=== PATIENT | female | born 2000 | race Hispanic/Latino ===

== ENCOUNTER 2020-11-15 00:57 | Emergency (ER) | payer OTHER ==
--- OUTSIDE RECORDS SUMMARY | 2020-11-15 00:59 | XMS REPORT | Continuity of Care Document ---
:2000 Author Organization [facility] t Address [address] [place] [address] Care Team Providers Name Role Phone Lauryn Franklin Attending Clinician Doctor Unassigned, Name Attending Clinician Unavailable Problems This patient has no known problems. Allergies, Adverse Reactions, Alerts This patient has no known allergies or adverse reactions. Medications This patient has no known medications. Procedures This patient has no known procedures. Encounters Start End Encounter Admission Attending Care Care Encounter Source Date/Time Date/Time Type Type Clinicians Facility Department ID 2019-06-12 2019-06-12 Refill [place] [facility] [id number] 00:00:00 00:00:00 Ananda R RISK AND INSURANCE MANAGER [id number] REGIONAL [id number] MATERNAL [id number] & CHILD 107 [facility] 2019-06-12 2019-06-12 Patient Doctor [facility] [id number] 00:00:00 00:00:00 Secure Msg Unassigned, RISK AND INSURANCE MANAGER [id number] Ashley [facility] [id number] MATERNAL [id number] & CHILD 107 [facility] Results This patient has no known results.
[2020-11-15 02:00] LABS: Absolute Lymphocytes (CBC) 1.9 K/uL (0.7-4.9); Basophils % 0.6 % (0-1.3); Hematocrit 38.1 % (36.0-45.0); Lymphocytes % 23.3 % (15.3-44.8); MPV 9.9 fL (7.6-11.3); RBC Red Blood Cell Count 4.09 M/uL (3.86-4.86)
[2020-11-15 02:24] LABS: BUN Blood Urea Nitrogen 7 mg/dL (7-18); Bicarbonate 27 mmol/L (21-32); Glucose Level 90 mg/dL (74-106); HCG, Quantitative 1012 mIU/mL (1-3); Potassium 3.6 mmol/L (3.5-5.1); Sodium Level 140 mmol/L (136-145)
[2020-11-15 02:27] LABS: Urine Blood 2+ (NEG); Urine Glucose NEGATIVE (NEG); Urine Protein NEGATIVE (NEG); Urine Specific Gravity >1.030 (1.005-1.030); Urine pH 6.5 (5.0-7.0)
[2020-11-15] MEDS ORDERED: ONDANSETRON 4 MG/2 ML VIAL ONE (05:14)
[2020-11-15] MEDS ORDERED: MORPHINE 2 MG/ML SYR ONE (05:14)
--- NOTE | 2020-11-15 06:47 | ER ---
Nurse's Notes [facility] Name: Latonya Cihrinos Age: 20 yrs Sex: Female : 2000 Arrival Date: 11/15/2020 Time: 00:58 Bed 13 Private MD: Corbin Erwin B Diagnosis: Threatened Presentation: 11/15 01:15 Chief complaint: Patient states: Reports vaginal bleeding that began 1 hour ago, lp1 reports having pelvic cramping and noticed bright red blood with clots; reports about 12 weeks . Coronavirus screen: Client denies travel out of the [place] in the last 14 days. At this time, the client does not indicate any symptoms associated with coronavirus-19. Ebola Screen: No symptoms or risks identified at this time. Risk Assessment: Do you want to hurt yourself or someone else? Patient reports no desire to harm self or others. Onset of symptoms was November 15, 2020 at 00:00. 01:15 Method Of Arrival: Ambulatory lp1 01:15 Acuity: DANIEL 3 lp1 01:18 Initial Sepsis Screen: Does the patient meet any 2 criteria? No. Patient's initial lp1 sepsis screen is negative. Does the patient have a suspected source of infection?. 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 - Social history:: Smoking status: Patient denies any tobacco usage or history of. Screenin:20 Abuse screen: Denies threats or abuse. Denies injuries from another. Nutritional lp1 screening: No deficits noted. Tuberculosis screening: No symptoms or risk factors identified. Fall Risk None identified. Assessment: 01:20 General: Appears in no apparent distress. uncomfortable, Behavior is calm, cooperative, jb4 appropriate for age. Pain: Complains of pain in abdomen Pain does not radiate. Pain currently is 7 out of 10 on a pain scale. Quality of pain is described as crampy. Neuro: Level of Consciousness is awake, alert, obeys commands, Oriented to person, place, time, situation. Cardiovascular: Patient's skin is warm and dry. Respiratory: Airway is patent Respiratory effort is even, unlabored, Respiratory pattern is regular, symmetrical. GI: Reports cramping. : Vaginal discharge is eloise blood. EENT: No signs and/or symptoms were reported regarding the EENT system. Derm: Skin is intact, Skin is pink, warm \T\ dry. Musculoskeletal: Circulation, motion, and sensation intact. Range of motion: intact in all extremities. 02:24 Reassessment: patient presented with heavy vaginal bleeding. sent to ultrasound via mg2 stretcher accompanied by ALLEGAR Garcia Tech. 03:30 Reassessment: Patient appears in no apparent distress at this time. Patient and/or jb4 family updated on plan of care and expected duration. Pain level reassessed. Patient is alert, oriented x 3, equal unlabored respirations, skin warm/dry/pink. 04:30 Reassessment: Patient appears in no apparent distress at this time. Patient and/or jb4 family updated on plan of care and expected duration. Pain level reassessed. Patient is alert, oriented x 3, equal unlabored respirations, skin warm/dry/pink. 05:30 Reassessment: Patient appears in no apparent distress at this time. Patient and/or jb4 family updated on plan of care and expected duration. Pain level reassessed. Patient is alert, oriented x 3, equal unlabored respirations, skin warm/dry/pink. PT given warm blanket and pillow per request. 07:00 Reassessment: Patient appears in no apparent distress at this time. Patient and/or jb4 family updated on plan of care and expected duration. Pain level reassessed. Patient is alert, oriented x 3, equal unlabored respirations, skin warm/dry/pink. Vital Signs: 01:18 BP 123 / 75; Pulse 72; Resp 16; Temp 98.2(TE); Pulse Ox 100% on R/A; Weight 68.04 kg lp1 (R); Height 5 ft. 6 in. (167.64 cm); Pain 6/10; 02:42 BP 120 / 71 LA Supine (man/reg); Pulse 74 LA; Resp 16; Temp 98.1(O); Pulse Ox 100% on jb5 R/A; 04:30 BP 116 / 70; Pulse 86; Resp 16; Pulse Ox 99% on R/A; jb4 05:00 BP 127 / 70; Pulse 89; Resp 16; Pulse Ox 100% on R/A; jb4 06:15 BP 106 / 58; Pulse 62; Resp 18; Pulse Ox 99% on R/A; jb4 07:00 BP 111 / 61; Pulse 73; Resp 16; Pulse Ox 100% on R/A; jb4 01:18 Body Mass Index 24.21 (68.04 kg, 167.64 cm) lp1 ED Course: 00:58 Patient arrived in ED. am2 00:58 Corbin Erwin MD is Private Physician. am2 01:17 Triage completed. lp1 01:17 Arm band placed on. lp1 01:27 Jourdan Arciniega RN is Primary Nurse. jb4 01:31 Sam Viera MD is Attending Physician. 7 02:00 Inserted saline lock: 20 gauge in right antecubital area, using aseptic technique. jb5 Blood collected. 02:15 Urine collected: straight cath specimen. mg2 02:23 Patient has correct armband on for positive identification. Pulse ox on. NIBP on. Door mg2 closed. Warm blanket given. 02:23 Assist provider with pelvic exam: Set up pelvic tray. Performed by Sam Viera MD mg2 Patient tolerated well. 02:36 Transvaginal OB US In Process Unspecified. EDMS 02:39 Warm blanket given. Verbal reassurance given. Linen changed. Patient cleaned with bath jb5 wipes from pelvic exam and cleaned of excess blood, patient assisted into diaper for vaginal bleeding. 06:46 Corbin Erwin MD is Referral Physician. 7 07:00 IV discontinued, intact, bleeding controlled, No redness/swelling at site. Pressure jb4 dressing applied. Administered Medications: 05:00 Drug: Zofran (Ondansetron) 4 mg Route: IVP; Site: right antecubital; jb4 05:03 Drug: morphine 2 mg Route: IVP; Site: right antecubital; jb4 Outcome: 06:47 Discharge ordered by . 7 07:00 Discharged to home via wheelchair, with friend. jb4 07:00 Condition: stable 07:00 Discharge instructions given to patient, Instructed on discharge instructions, follow up and referral plans. medication usage, Demonstrated understanding of instructions, follow-up care, medications, Prescriptions given X 1. 07:19 Patient left the ED. jb4 Signatures: Dispatcher [employer] EDMS Hien Gómez RN RN lp1 Jourdan Arciniega RN RN jb4 Sandra Pope jb5 Emy Vieyra am2 David Donohue, RN RN mg2 Sam Viera MD MD mh7 Corrections: (The following items were deleted from the chart) 01:20 01:15 Chief complaint: Patient states: Reports vaginal bleeding that began 1 hour ago, lp1 reports having pelvic cramping and noticed bright red blood with clots lp1 06:25 06:15 BP 106 / 58; Pulse 99bpm; Resp 18bpm; Pulse Ox 99% RA; jb4 jb4
--- NOTE | 2020-11-15 06:47 | EDPHYS ---
Physician Documentation [facility] Name: Latonya Chirinos Age: 20 yrs Sex: Female : 2000 Arrival Date: 11/15/2020 Time: 00:58 Bed 13 Private MD: Corbin Erwin B ED Physician Sam Viera HPI: 11/15 01:40 This 20 yrs old Female presents to ER via Ambulatory with complaints of mh7 Vaginal Bleeding, + Preg <12wks. 01:40 The patient presents to the emergency department with vaginal bleeding, that is mh7 moderate, with clots. 01:41 The estimated gestational age is 12 weeks. course: care: at a 7 clinic, Leakage of Fluid: none appreciated, Ultrasound: the patient has not had an ultrasound, Risk/complications: no obvious risks or complications are appreciated. Previous pregnancies: the patient has never been . Associated signs and symptoms: Pertinent positives: vaginal bleeding, pelvic pain, Pertinent negatives: abdominal pain, chest pain, diarrhea, dysuria, fever, frequency, nausea, ruptured membranes, seizure, shortness of breath, vaginal discharge, vomiting. 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 - Social history:: Smoking status: Patient denies any tobacco usage or history of. ROS: 01:41 Constitutional: Negative for fever, chills, and weight loss, Eyes: Negative for injury, mh7 pain, redness, and discharge, ENT: Negative for injury, pain, and discharge, Neck: Negative for injury, pain, and swelling, Cardiovascular: Negative for chest pain, palpitations, and edema, Respiratory: Negative for shortness of breath, cough, wheezing, and pleuritic chest pain, Abdomen/GI: Negative for abdominal pain, nausea, vomiting, diarrhea, and constipation, Back: Negative for injury and pain, MS/Extremity: Negative for injury and deformity, Skin: Negative for injury, rash, and discoloration, Neuro: Negative for headache, weakness, numbness, tingling, and seizure, Psych: Negative for depression, anxiety, suicide ideation, homicidal ideation, and hallucinations, Allergy/Immunology: Negative for hives, rash, and allergies, Endocrine: Negative for neck swelling, polydipsia, polyuria, polyphagia, and marked weight changes, Hematologic/Lymphatic: Negative for swollen nodes, abnormal bleeding, and unusual bruising. Exam: 01:41 Constitutional: This is a well developed, well nourished patient who is awake, alert, mh7 and in no acute distress. Head/Face: Normocephalic, atraumatic. Eyes: Pupils equal round and reactive to light, extra-ocular motions intact. Lids and lashes normal. Conjunctiva and sclera are non-icteric and not injected. Cornea within normal limits. Periorbital areas with no swelling, redness, or edema. Neck: Trachea midline, no thyromegaly or masses palpated, and no cervical lymphadenopathy. Supple, full range of motion without nuchal rigidity, or vertebral point tenderness. No Meningismus. Chest/axilla: Normal chest wall appearance and motion. Nontender with no deformity. No lesions are appreciated. Cardiovascular: Regular rate and rhythm with a normal S1 and S2. No gallops, murmurs, or rubs. Normal PMI, no JVD. No pulse deficits. Respiratory: Lungs have equal breath sounds bilaterally, clear to auscultation and percussion. No rales, rhonchi or wheezes noted. No increased work of breathing, no retractions or nasal flaring. Abdomen/GI: Soft, non-tender, with normal bowel sounds. No distension or tympany. No guarding or rebound. No evidence of tenderness throughout. Back: No spinal tenderness. No costovertebral tenderness. Full range of motion. Skin: Warm, dry with normal turgor. Normal color with no rashes, no lesions, and no evidence of cellulitis. MS/ Extremity: Pulses equal, no cyanosis. Neurovascular intact. Full, normal range of motion. Neuro: Awake and alert, GCS 15, oriented to person, place, time, and situation. Cranial nerves II-XII grossly intact. Motor strength 5/5 in all extremities. Sensory grossly intact. Cerebellar exam normal. Normal gait. Psych: Awake, alert, with orientation to person, place and time. Behavior, mood, and affect are within normal limits. 06:43 : CVA tenderness, is absent, Pelvic Exam: External exam: is normal, Speculum exam: mh7 moderate bleeding, blood clots in vaginal vault, no cervicitis, os that is open, no tissue in cervix is seen, no tissue in vagina is seen, bimanual exam reveals no cervical motion tenderness, os that is open, normal sized uterus, uterine tenderness, no adnexa tenderness or masses bilaterally, the nurse was present for the exam, Bladder: is normal. Vital Signs: 01:18 BP 123 / 75; Pulse 72; Resp 16; Temp 98.2(TE); Pulse Ox 100% on R/A; Weight 68.04 kg lp1 (R); Height 5 ft. 6 in. (167.64 cm); Pain 6/10; 02:42 BP 120 / 71 LA Supine (man/reg); Pulse 74 LA; Resp 16; Temp 98.1(O); Pulse Ox 100% on jb5 R/A; 04:30 BP 116 / 70; Pulse 86; Resp 16; Pulse Ox 99% on R/A; jb4 05:00 BP 127 / 70; Pulse 89; Resp 16; Pulse Ox 100% on R/A; jb4 06:15 BP 106 / 58; Pulse 62; Resp 18; Pulse Ox 99% on R/A; jb4 07:00 BP 111 / 61; Pulse 73; Resp 16; Pulse Ox 100% on R/A; jb4 01:18 Body Mass Index 24.21 (68.04 kg, 167.64 cm) lp1 MDM: 06:44 Differential diagnosis: threatened Ab, inevitable Ab, complete Ab, retained Ab, septic mh7 Ab, missed Ab, ectopic . Data reviewed: vital signs, nurses notes, lab test result(s), Beta HCG: CBC, electrolytes, urinalysis, UPT: positive radiologic studies, ultrasound. Data interpreted: Pulse oximetry: on room air is 99 %. Interpretation: normal. Counseling: I had a detailed discussion with the patient and/or guardian regarding: the historical points, exam findings, and any diagnostic results supporting the discharge/admit diagnosis, lab results, radiology results, the need for outpatient follow up, to return to the emergency department if symptoms worsen or persist or if there are any questions or concerns that arise at home. Response to treatment: the patient's symptoms have markedly improved after treatment. 06:47 Patient medically screened. mh7 11/15 01:29 Order name: Quantitative Hcg; Complete Time: 02:39 mg2 11/15 01:29 Order name: Abo/rh Typing; Complete Time: 02:39 mg2 11/15 01:29 Order name: Basic Metabolic Panel; Complete Time: 02:39 mg2 11/15 01:29 Order name: CBC with Diff; Complete Time: 02:39 mg2 11/15 02:13 Order name: Urine --Ancillary (enter results); Complete Time: 02:39 tt3 11/15 02:13 Order name: Urine Dipstick--Ancillary (enter results); Complete Time: 02:39 tt3 11/15 01:29 Order name: Urine Test (obtain specimen); Complete Time: 02: mg2 11/15 01:29 Order name: IV Saline Lock; Complete Time: :51 mg2 11/15 01:29 Order name: Labs collected and sent; Complete Time: : mg2 11/15 01:29 Order name: NPO; Complete Time: :51 mg2 11/15 01:29 Order name: Urine Dipstick-Ancillary (obtain specimen); Complete Time: 02: mg2 11/15 01:38 Order name: Transvaginal OB US lp1 Administered Medications: 05:00 Drug: Zofran (Ondansetron) 4 mg Route: IVP; Site: right antecubital; jb4 05:03 Drug: morphine 2 mg Route: IVP; Site: right antecubital; jb4 Disposition: 11/15/20 06:47 Discharged to Home. Impression: Threatened . - Condition is Stable. - Discharge Instructions: Threatened Miscarriage, [id number], Vaginal Bleeding During , First Trimester, [id number]. - Prescriptions for Tylenol- Codeine #3 300-30 mg Oral Tablet - take 1 tablet by ORAL route every 6 hours As needed; 12 tablet. - Work release form, Medication Reconciliation Form, Thank You Letter, Antibiotic Education, Prescription Opioid Use form. - Follow up: Private Physician; When: 1 - 2 days; Reason: Worsening of condition, Recheck today's complaints, Continuance of care, Re-evaluation by your physician. Follow up: Corbin Erwin MD; When: 1 - 2 days; Reason: Worsening of condition, Recheck today's complaints. - Problem is new. - Symptoms have improved. Signatures: Dispatcher [employer] EDMS Hien Gómez RN RN lp1 Jourdan Arciniega RN RN jb4 David Donohue RN RN mg2 Sam Viera MD MD mh7 Corrections: (The following items were deleted from the chart) 07:19 06:47 11/15/2020 06:47 Discharged to Home. Impression: Threatened . Condition jb4 is Stable. Forms are Medication Reconciliation Form, Thank You Letter, Antibiotic Education, Prescription Opioid Use. Follow up: Private Physician; When: 1 - 2 days; Reason: Worsening of condition, Recheck today's complaints, Continuance of care, Re-evaluation by your physician. Follow up: Corbin Erwin; When: 1 - 2 days; Reason: Worsening of condition, Recheck today's complaints. Problem is new. Symptoms have improved. mh7
[2020-11-15 07:25] VITALS: TEMP 98.1
[2020-11-15 07:29] VITALS: BP 106/58; O2SAT 99
--- NOTE | 2020-11-15 20:04 | RAD REPORT ---
EXAM DESCRIPTION: US - Transvaginal OB - 11/15/2020 2:36 am CLINICAL HISTORY: 20 years Female, VAGINAL BLEEDING COMPARISON: None. TECHNIQUE: Complete first trimester obstetrical ultrasound obtained with transvaginal imaging. FINDINGS: Uterus: The uterus measures 13.6 x 6.6 cm. No myometrial abnormalities. Gestational sac: Gestational sac identified with a mean sac diameter of 6.0 cm. Gestational sac mildl y irregular contours with internal debris. pole: Not identified. heart motion: Not identified. Yolk sac: Not identified. Placenta: Not identified. Right ovary: Not identified due to overlying structures. Left ovary: Not identified due to overlying structures. Adnexa: No large adnexal masses. Free fluid: No free pelvic fluid. IMPRESSION: 1. Irregular gestational sac identified in the uterus with an estimated gestational age of 12 weeks, 1 day. pole is not identified. Differential considerations include anembryonic pre gnancy and in-progress miscarriage. Close continued clinical, laboratory, and sonographic follow-up r ecommended. Electronically signed by: Arsen Flower 11/15/2020 2:55 AM CODE ENFORCEMENT OFFICER Due to temporary technical issues with the PACS/Fluency reporting system, reports are being signed by the in house radiologists without review as a courtesy to insure prompt reporting. The interpreting radiologist is fully responsible for the content of the report.
== END 2020-11-15 07:19 | disposition home or self-care (01) ==
LOC: ER 00:57
DX: O20.0 Threatened abortion (principal); Z3A.12 12 weeks gestation of pregnancy
CPT/HCPCS: 85025; 80048; 36415; 86900; 81025; 86901; 84702; 81003; 76817; 96375; 96374; 99284; J2270; J2405